=== PATIENT | male | born 1970 | race African-American/Black ===

== ENCOUNTER 2024-10-21 14:42 | Emergency (ER) | payer MEDICAID ==
[~2024-10-21] VITALS: Ht 175.3 cm; Wt 71.0 kg
[2024-10-21 15:21] VITALS: TEMP 98.7; O2SAT 96
[2024-10-21 16:40] VITALS: BP 107/65; PULSE 72; RESP 20; O2SAT 100
[2024-10-21] MEDS: SODIUM CHLORIDE 0.9% 1,000 ML IV ONE (16:41)
== END 2024-10-21 18:42 | disposition home or self-care (01) ==
LOC: ER 14:42
DX: R55 Syncope and collapse (principal); I10 Essential (primary) hypertension
CPT/HCPCS: 93005; 99283; J7030